=== PATIENT | male | born 1960 | race Caucasian/White ===

== ENCOUNTER 2019-07-09 10:25 | Day surgery (SDC) | payer BC ==
[~2019-07-09] VITALS: Ht 185.4 cm; Wt 92.0 kg
[~2019-07-09 10:25] MED LIST: CLIN300 PO; CYCL10 PO; HYDACE5 PO; OXYACE5T PO; PENVK500 PO; RXCYCL10 PO; RXHYDACE PO; Robaxin-750750 MG PO; SULI150 PO; TADA10TA PO
--- NOTE | 2019-07-09 11:11 | NUR ---
History, Chart, Medications and Allergies reviewed before start of procedure. Patient confirms NPO status and agrees with scheduled surgery. Patient States Post-Procedure ride home has been arranged with sister, Jackelyn.
--- NOTE | 2019-07-09 11:46 | NUR ---
07/09/19 1146 Benoit Mc History, Chart, Medications and Allergies reviewed before start of procedure.MONITOR INTACT WITH CONTINUOUS PULSE OXIMETRY AND INTERMITTENT BP.3-LEAD EKG REVIEWED WITH PHYSICIAN PRIOR TO START OF PROCEDURE.O2 VIA N/C INTACT THROUGHOUT SEDATION/PROCEDURE. Patient confirms NPO status and agrees with scheduled surgery.PATIENT DETERMINED TO BE ASA APPROPRIATE FOR PROPOFOL SEDATION PRIOR TO START OF PROCEDURE BY DR. SHELTON.
--- NOTE | 2019-07-09 12:16 | NUR ---
RECEIVED REPORT FROM ENDO RN (LUDIVINA). PT IS AWAKE. VSS. SISTER WILL BE RIDE HOME. DOES NOT WANT ANYTHING TO DRINK
--- NOTE | 2019-07-09 12:24 | NUR ---
PT HAS NO COMPLAINTS JUST LAYING QUIETLY IN BED.
--- NOTE | 2019-07-09 12:30 | NUR ---
Discharge instructions reviewed with patient. Patient verbalizes understanding. Copy given to patient to take home. PT HAS NO QUESTIONS OR CONCERNS WITH D/C. PT HAS D/C PAPERWORK. PT HAS ALL PERSONAL BELONGINGS. PT GETTING DRESSED.
--- NOTE | 2019-07-09 12:34 | NUR ---
Discharged via wheelchair to private car for ride home.
== END 2019-07-09 22:44 | disposition home or self-care (01) ==
LOC: ORSCMMR 10:25 → ORD 11:30 → ORSCMMR 11:30
PROVIDERS: Internal Medicine Gastroenterology
PROC: 0DBP8ZX Excision of Rectum, Via Natural or Artificial Opening Endoscopic, Diagnostic (ICD-10-PCS; principal; 2019-07-09 11:30)
PROC: 0DBK8ZX Excision of Ascending Colon, Via Natural or Artificial Opening Endoscopic, Diagnostic (ICD-10-PCS; principal; 2019-07-09 11:30)
DX: Z12.11 Encounter for screening for malignant neoplasm of colon (principal); Z86.010 Personal history of colon polyps; D12.2 Benign neoplasm of ascending colon; K63.5 Polyp of colon; F17.210 Nicotine dependence, cigarettes, uncomplicated; Z79.899 Other long term (current) drug therapy
CPT/HCPCS: 88305; J2704; J7120

== ENCOUNTER → 2021-11-04 | Outpatient (CLI) | payer BC | LOC: LAB SHORT 13:14 | DX: D36.14 Benign neoplasm of peripheral nerves and autonomic nervous system of thorax (principal) | CPT/HCPCS: 88305 ==